=== PATIENT | male | born 1940 | race Caucasian/White ===

== ENCOUNTER 2017-09-22 12:47 | Inpatient (IN) | payer MEDICARE, OTHER ==
[~2017-09-22] VITALS: Ht 170.2 cm; Wt 60.3 kg
[2017-09-22 13:00] VITALS: BP 123/67
[2017-09-22] MEDS ORDERED: VENTOLIN HFA 1818 GM INH (13:09)
[2017-09-22] MEDS ORDERED: LO-DOSE ASPIRIN81 M1 PO (13:10)
[2017-09-22] MEDS ORDERED: CARVEDILOL6.25 MG PO (13:13)
[2017-09-22] MEDS ORDERED: PLAVIX 75 MG TA75 M1 PO (13:14)
[2017-09-22] MEDS ORDERED: CARDIZEM CD180 MG PO (13:16)
[2017-09-22] MEDS ORDERED: COLACE100 MG PO (13:18)
[2017-09-22] MEDS ORDERED: GABAPENTIN 100100 MG PO (13:19)
[2017-09-22] MEDS ORDERED: HYDROCODONE-AP1 EAC6 PO (13:22)
[2017-09-22] MEDS ORDERED: PERCOCET 7.5-31 EACH PO (13:23)
[2017-09-22] MEDS ORDERED: COMBIVENT INH (13:24)
[2017-09-22] MEDS ORDERED: LISINOPRIL10 MG PO (13:25)
[2017-09-22] MEDS ORDERED: LOVASTATIN 20 M20 MG PO (13:26)
[2017-09-22] MEDS ORDERED: SINGULAIR 10 MG10 M1 PO (13:27)
[2017-09-22] MEDS ORDERED: PROTONIX40 M1 PO (13:28)
[2017-09-22 13:29] LABS: ABSOLUTE BASOPHILS 0.1 thou/uL (0.0-0.2); ABSOLUTE EOSINOPHILS 0.1 thou/uL (0.0-0.7); ABSOLUTE LYMPHOCYTES 1.4 thou/uL (0.8-5.3); ABSOLUTE MONOCYTES 0.7 thou/uL (0.0-1.2); ABSOLUTE NEUTROPHILS 6.3 thou/uL (1.6-8.1); BASOPHILS 0.9 %; EOSINOPHILS 1.7 %; HEMATOCRIT 35.8 % (42.0-52.0); HEMOGLOBIN 11.1 gm/dL (14.0-18.0); MCH 25.2 pg (26.0-34.0); MCHC 31.1 g/dL (28.0-37.0); MCV 81.1 fL (80.0-100.0); MONOCYTES 8.2 %; MPV 7.6 fl. (7.2-11.1); NUCLEATED RBCS 0 /100WBC; PLATELET COUNT* 346 thou/uL (150-400); POLYS 73.2 %; RBC 4.41 mil/uL (4.50-6.00); RDW-CV 17.6 % (10.5-14.5); WBC 8.7 thou/uL (4.0-11.0)
[2017-09-22] MEDS ORDERED: MULTI-VITAMIN1 EAC5 PO (13:31)
[2017-09-22] MEDS ORDERED: COUMADIN 4 MG TA4 M1 PO (13:34)
[2017-09-22 13:36] LABS: CALCIUM 9.5 mg/dL (8.5-10.1); CREATININE 1.3 mg/dL (0.6-1.3); POTASSIUM 4.4 mmol/L (3.5-5.1)
[2017-09-22 13:37] LABS: INR 1.2; PROTIME 11.7 Seconds (9.20-11.50)
[2017-09-22] MEDS ORDERED: IRON PO (13:38)
--- NOTE | 2017-09-22 14:31 | EKG ---
[place] [address] ELECTROCARDIOGRAM REPORT Name: NATALIA LEVY Room: [place] [address] ADM IN .R.#: [id number] Admission: 09/22/17 Attend Phys: Flaquito Costello Discharge: Date of : 38 Report #: [id number] THIS REPORT FOR: //name// [facility] Test Date: 2017-09-22 Test Time: 13:18:13 Pat Name: NATALIA LEVY Department: Room: [place] [address] Gender: M Rebar Bender: : 1940 Requested By: Gerhard Arriola Order Number: [id number] Yamileth MD: Mohinder Morrissey Measurements Intervals [place] Rate: 80 P: NV: QRS: 27 QRSD: 101 T: 204 QT: 392 QTc: 453 Interpretive Statements Atrial fibrillation Probable LVH with secondary repol abnrm No previous ECG available for comparison Electronically Signed On 09-22-2017 14:31:34 SIZE MARKER by Mohinder Morrissey [email or web address] <ELECTRONICALLY SIGNED> By: Mohinder Morrissey MD, [facility] 09/22/17 1431 1318 17 Mohinder Morrissey MD, FACC /EPI
[2017-09-22 16:45] VITALS: BP 103/69
[2017-09-22 20:00] VITALS: BP 119/63
[2017-09-23 00:51] VITALS: BP 144/55
[2017-09-23 03:54] VITALS: BP 142/95
[2017-09-23 08:00] VITALS: BP 123/71
[2017-09-23 09:01] LABS: INR 1.2
[2017-09-23 20:00] VITALS: BP 116/66
[2017-09-24 05:27] LABS: HEMATOCRIT 27.7 % (42.0-52.0); MCH 25.7 pg (26.0-34.0); MCHC 32.2 g/dL (28.0-37.0); MCV 79.7 fL (80.0-100.0); RBC 3.47 mil/uL (4.50-6.00); RDW-CV 17.5 % (10.5-14.5); WBC 8.6 thou/uL (4.0-11.0)
[2017-09-24 05:35] LABS: HEMOGLOBIN 8.9 gm/dL (14.0-18.0)
[2017-09-24 05:38] LABS: INR 1.3; PROTIME 12.9 Seconds (9.20-11.50)
[2017-09-24 05:52] LABS: ALBUMIN 2.4 g/dL (3.4-5.0); CALCIUM 8.6 mg/dL (8.5-10.1); CREATININE 1.2 mg/dL (0.6-1.3); POTASSIUM 4.4 mmol/L (3.5-5.1); TOTAL BILIRUBIN 0.2 mg/dL (<0.1-1.0); TOTAL PROTEIN 5.8 g/dL (6.4-8.2)
[2017-09-24 08:00] VITALS: BP 155/119
[2017-09-24 11:41] VITALS: BP 123/85
--- NOTE | 2017-09-24 15:23 | S ---
[place] [address] SURGICAL PATH RPT PROCEDURE Name: MILIND LEVY Room: [address] IN ..#: [id number] Admission: 09/22/17 Date of : 38 Discharge: Report #: [id number] Path Case #: [id number] PATHOLOGY REPORT COLLECTION DATE: 09/22/2017 RECEIVED DATE: 09/23/2017 SUBMITTING PHYS: Dr. Gerhard Arriola OTHER PHYS: Dr. 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 (ROGELIO:; 09/24/2017) PATHOLOGIST: Jason Morrell M.D. REPORT ELECTRONICALLY SIGNED BY: Jason Morrell M.D. DATE/TIME: 09/24/2017 15:23 * * * * * * * * * * * * GROSS PATHOLOGY: Received fresh in a biohazard bag labeled "Milind Levy left leg below knee amputation" and consists of a left leg amputated below the knee. The leg measures 30 cm from the cutaneous margin to heel/foot and measures 20.5 cm from heel to tip of great toe. There is 6.0 cm length of fibula and 4.5 cm of tibia extending above the soft tissue margin. All 5 toes are present. The first and second toe show marked mummification artifact. There is no exposed bone. The third, fourth, and fifth toes appear grossly unremarkable. There is a gangrenous lesion at the heel, 2.5 cm in diameter. All lesions clear the soft tissue and cutaneous margins by 14.0 cm or greater. The remaining skin is white. Sectioning reveals marked atherosclerosis of the vasculature. There are no soft tissue lesions grossly identified. The surgical margin appears grossly viable. Nurse Case Manager sections are submitted A1-A4. A1 gangrene A2 anterior and posterior arteries A3 margin, skin and skeletal muscle A4 bone marrow of tibia (HUMBERTO; 09/23/2017) [place] [address] SURGICAL PATH RPT PROCEDURE Name: MILIND LEVY Room: [address] IN ..#: [id number] Admission: 09/22/17 Date of : 38 Discharge: Report #: [id number] Path Case #: [id number] CLINICAL HISTORY: Atherosclerosis of the arteries of left extremity INITIAL CPT CODE(S): A; 72900 Professional services performed by [facility] at [address] [address] Technical services performed by [facility] at [address] [place] [address]., [address] [address]. [facility] [address] [address] PHONE: [phone] DIRECTOR: Marcos Carvajal M.D. * * * END OF REPORT * * *
[2017-09-24 16:00] VITALS: BP 130/54
[2017-09-24 20:00] VITALS: BP 129/64
[2017-09-25] VITALS: BP 120/70
[2017-09-25 04:35] VITALS: BP 135/58
[2017-09-25 05:32] LABS: HEMATOCRIT 27.1 % (42.0-52.0); HEMOGLOBIN 8.6 gm/dL (14.0-18.0); MCH 25.3 pg (26.0-34.0); MCHC 31.6 g/dL (28.0-37.0); MCV 80.2 fL (80.0-100.0); MPV 8.2 fl. (7.2-11.1); RBC 3.38 mil/uL (4.50-6.00); RDW-CV 17.5 % (10.5-14.5); WBC 6.6 thou/uL (4.0-11.0)
[2017-09-25 05:34] LABS: INR 1.4
[2017-09-25 05:37] LABS: CALCIUM 8.7 mg/dL (8.5-10.1); CREATININE 1.1 mg/dL (0.6-1.3); POTASSIUM 4.3 mmol/L (3.5-5.1)
[2017-09-25 08:00] VITALS: BP 152/86
[2017-09-25 12:00] VITALS: BP 136/104
[2017-09-25 20:00] VITALS: BP 140/78
[2017-09-26] VITALS (7 sets, daily range): BP systolic 110–130; BP diastolic 52–87
[2017-09-26 05:17] LABS: INR 1.7; PROTIME 16.7 Seconds (9.20-11.50)
[2017-09-27 04:17] VITALS: BP 101/80
[2017-09-27 04:51] LABS: INR 1.7; PROTIME 16.5 Seconds (9.20-11.50)
[2017-09-27 08:43] VITALS: BP 146/86
[2017-09-27 16:30] VITALS: BP 134/76
[2017-09-28] VITALS: BP 134/56
[2017-09-28 04:57] VITALS: BP 139/77
[2017-09-28 05:06] LABS: HEMATOCRIT 25.8 % (42.0-52.0); HEMOGLOBIN 8.2 gm/dL (14.0-18.0); MCH 25.5 pg (26.0-34.0); MCHC 31.7 g/dL (28.0-37.0); MCV 80.2 fL (80.0-100.0); MPV 7.9 fl. (7.2-11.1); RBC 3.21 mil/uL (4.50-6.00); RDW-CV 17.6 % (10.5-14.5); WBC 10.2 thou/uL (4.0-11.0)
[2017-09-28 05:31] LABS: CALCIUM 8.9 mg/dL (8.5-10.1); CREATININE 1.1 mg/dL (0.6-1.3); POTASSIUM 3.4 mmol/L (3.5-5.1)
[2017-09-28 05:32] LABS: INR 1.8; PROTIME 17.8 Seconds (9.20-11.50)
[2017-09-28 08:10] VITALS: BP 117/41
[2017-09-28 20:00] VITALS: BP 133/75
[2017-09-29] VITALS: BP 125/52
[2017-09-29 07:29] LABS: INR 2.3; PROTIME 22.1 Seconds (9.20-11.50)
[2017-09-29 07:50] VITALS: BP 118/62
[2017-09-29 10:45] LABS: INFLUENZA A ANTIGEN None Detected (None Detect); INFLUENZA B ANTIGEN None Detected (None Detect)
[2017-09-29 14:26] LABS: URINE BILIRUBIN NEGATIVE (Negative); URINE BLOOD 1+ (Negative); URINE CLARITY CLEAR; URINE COLOR YELLOW; URINE GLUCOSE-RANDOM NEGATIVE (Negative); URINE KETONES NEGATIVE (Negative); URINE LEUKOCYTES-REFLEX 1+ (Negative); URINE NITRITE-REFLEX NEGATIVE (Negative); URINE PROTEIN 2+ (Negative); URINE SPECIFIC GRAVITY >= 1.030 (1.005-1.030); URINE UROBILINOGEN 0.2 E.U./dl (0.2-1.0)
[2017-09-29 15:06] LABS: SQUAMOUS 4-10 Moderate /LPF (0-3)
[2017-09-29 15:07] LABS: CRYSTALS None Seen /LPF (None Seen); MUCUS None Seen strn/LPF (None Seen)
[2017-09-29 15:08] LABS: HYALINE CASTS 0-3 Few /LPF (None Seen)
[2017-09-29 15:09] LABS: BACTERIA-REFLEX 1-9 Few /HPF (None Seen); URINE RBC 0-2 Rare /HPF (0-2)
[2017-09-29 20:00] VITALS: BP 107/61
[2017-09-30 00:11] VITALS: BP 105/60
[2017-09-30 08:31] VITALS: BP 128/58
[2017-09-30 09:31] VITALS: BP 128/58
[2017-09-30] MEDS ORDERED: LIDOCAINE1 EACH TRANSDERM (09:48)
[2017-09-30] MEDS ORDERED: PAXIL10 MG PO (09:56)
[2017-09-30] MEDS ORDERED: CEFUROXIME500 MG PO (10:04)
[2017-09-30 11:54] VITALS: BP 128/58
--- NOTE | 2017-10-08 14:35 | OP ---
[address] [address] OPERATIVE REPORT Name: NATALIA LEVY Room: [address]R.#: [id number] Admission: 09/22/17 Attend Phys: Flaquito Costello Discharge: 09/30/17 Date of : 38 Report #: [id number] THIS REPORT FOR: //name// CC: River Cantrell DATE OF SERVICE: 09/22/2017 PREOPERATIVE DIAGNOSIS: Peripheral vascular disease with gangrene, left lower extremity. POSTOPERATIVE DIAGNOSIS: Peripheral vascular disease with gangrene, left lower extremity. SURGEON: Gerhard Arriola DO. RENTAL REPRESENTATIVE: Stephen Montelongo MD SECOND RENTAL REPRESENTATIVE: Gill Camarillo PA-C ANESTHESIA: General endotracheal anesthesia. PROCEDURE: Left below-knee amputation. ESTIMATED BLOOD LOSS: 350 mL. SPECIMEN: Left leg, discarded. COMPLICATIONS: None. CONDITION: Stable. DISPOSITION: Floor. INDICATIONS FOR THE PROCEDURE AND CONSENT: The patient is a 76-year-old male who presented with acute limb ischemia of the left leg and emergent thrombectomy, who later developed necrosis of several of the digits of his left foot as well as a heel ulcer. Risks and benefits of revascularization and limb salvage versus bony amputation were discussed at length. The patient wished to proceed with bony amputation after undergoing TCOMs, which demonstrated likelihood of healing. The patient was then consented and scheduled. PROCEDURE IN DETAIL: After timeout was performed, the patient was placed in supine position with sterile prep and drape of the left lower extremity. Transverse incision was made one hand breadth below the tibial tuberosity and [facility] [address] [place] [address] OPERATIVE REPORT Name: NATALIA LEVY Room: [address] IN .R.#: [id number] Admission: 09/22/17 Attend Phys: Flaquito Costello Discharge: 09/30/17 Date of : 38 Report #: [id number] dissection carried down using Bovie electrocautery. The tibia was cleaned anteriorly and a periosteal elevator used to free the bony attachments to the skin flap. A laparotomy pad was placed posterior to the tibia. Bovie electrocautery was then used to continue to divide muscle fibers. The anterior tibial vascular bundle was then ligated between silk sutures and divided. The fibula was then identified anteriorly and Bovie taken down to the fibula and again the bony attachments were freed using Bovie electrocautery and a lap pad placed posterior to the bone. A periosteal elevator was used to clean the bone cephalad. The tibia was then divided with a bone saw proximally within the wound to allow for a tension-free skin flap. The fibula was then divided with bone cutters. The amputation knife was then used to create the posterior muscle flap, staying along the fibula and tibia posteriorly and creating a long muscular flap. This was then divided posteriorly and dividing the skin. Leg was then from the patient and discarded. Bleeding was then controlled using electrocautery with hemostats, and then 2-0 and 3-0 Vicryl suture ligation was used to ligate any bleeding veins or arteries. The muscle flap then was irrigated copiously with saline and any remaining oozing was touched up with Bovie electrocautery and [id number] 3-0 Vicryl. The tibial nerve was then identified and injected with lidocaine and transected proximally within the wound. The tibia was then using a bone saw an angle was then used to bevel the edge of the bone and then sand the anterior surface so that there was no significant bony prominence. The fibular head was palpated and noted to be satisfactory. Wound was then irrigated again, no additional bleeding was identified. The posterior flap was then brought up and fascial layers were closed with 2-0 Vicryl. Subdermal interrupted 3-0 Vicryl was then used and neida, Prevena VAC, Gregg and posterior knee immobilizer were used as sterile dressing. The patient tolerated the procedure well. All lap, needle and instrument counts were correct. <ELECTRONICALLY SIGNED> By: Gerhard Arriola DO 10/08/17 1435 1557 [id number] Arriola DO /nt
== END 2017-09-30 15:02 | DRG 239 ==
LOC: M.ORTHSURG 12:47 → M.TBA 12:47 → M.PRE 15:33 → M.ORTHSURG 17:59 → M.2W 09-23 10:37 → M.ORTHSURG 09-26 16:16
PROVIDERS: Internal Medicine; Surgery; ADMIT Internal Medicine
PROC: 0Y6J0Z3 Detachment at Left Lower Leg, Low, Open Approach (ICD-10-PCS; principal; 2017-09-22)
DX: I70.262 Atherosclerosis of native arteries of extremities with gangrene, left leg (principal); G93.40 Encephalopathy, unspecified; E44.0 Moderate protein-calorie malnutrition; L97.919 Non-pressure chronic ulcer of unspecified part of right lower leg with unspecified severity; L97.929 Non-pressure chronic ulcer of unspecified part of left lower leg with unspecified severity; I48.91 Unspecified atrial fibrillation; F03.90 Unspecified dementia, unspecified severity, without behavioral disturbance, psychotic disturbance, mood disturbance, and anxiety; J44.9 Chronic obstructive pulmonary disease, unspecified; I11.0 Hypertensive heart disease with heart failure; I50.9 Heart failure, unspecified; Z68.20 Body mass index [BMI] 20.0-20.9, adult; Z79.899 Other long term (current) drug therapy; Z86.73 Personal history of transient ischemic attack (TIA), and cerebral infarction without residual deficits; Z88.0 Allergy status to penicillin